=== PATIENT | female | born 1975 | race African-American/Black ===

== ENCOUNTER 2017-01-18 14:32 | Emergency (ER) | payer OTHER, MEDICAID ==
[2017-01-18 18:11] VITALS: BP 127/84
[2017-01-18 18:17] LABS: Urine Bacteria 1+ (Absent); Urine Bilirubin Negative (Negative); Urine Glucose Negative (Negative); Urine Nitrite Negative (Negative)
[2017-01-18 18:37] LABS: Hematocrit 41 % (35-47); Hemoglobin 13.4 g/dl (12.0-16.0); Mean Corpuscular HGB Conc 33 g/dl (31-36); Mean Corpuscular Hemoglobin 28 pg (27-31); Mean Corpuscular Volume 84 fL (80-97); Mean Platelet Volume 11 um3 (7.4-10.4); Red Blood Count 4.85 10^6/ul (4.0-5.4); Red Cell Distribution Width 13 % (10.5-15); White Blood Count 7.2 10^3/ul (3.5-10.8)
[2017-01-18 18:42] LABS: Comments Flag Yes
[2017-01-18 18:44] LABS: Add Diff/Slide Review? Slide Review Added
--- NOTE | 2017-01-18 18:46 | ED ---
GI/ HPI - HPI Summary HPI Summary: 41F presents with abdominal pain lower. She admits to vaginal discharge that was black and foul smelling. She had sex with new person before discharge started. is concerned for STD. had hysterectomy years ago. No fever. She denies any dysuria, flank pain, frequency, urgency. She denies any vomiting or nausea. she denies any diarrhea or constipation. she denies any foreign body in her vagina. never had these symptoms before. she states the discharge is foul smelling and is not itchy. - History of Current Complaint Pain Intensity: 6 <Alejandra Bailey - Last Filed: 01/19/17 02:08> <Vicky Rollins - Last Filed: 01/20/17 16:39> - History of Current Complaint Chief Complaint: EDAbdPain Time Seen by Provider: 01/18/17 16:39 Stated Complaint: ABD PAIN-SENT FROM [facility] - Allergy/Home Medications Allergies/Adverse Reactions: Allergies Allergy/AdvReac Type Severity Reaction Status Date / Time Tramadol Allergy Itching Verified 01/18/17 14:44 PMH/Surg Hx/FS Hx/Imm Hx Endocrine/Hematology History: Denies: Hx Diabetes Cardiovascular History: Reports: Hx Hypertension - on norvasc Denies: Hx Pacemaker/ICD History: Denies: Hx Renal Disease Musculoskeletal History: Reports: Hx Back Problems Sensory History: Reports: Hx Contacts or Glasses Denies: Hx Hearing Aid Opthamlomology History: Reports: Hx Contacts or Glasses Psychiatric History: Denies: Hx Panic Disorder - Surgical History Surgery Procedure, Year, and Place: L5-S1 IN 2014 [place]IAL [place]OMY 2000 [place] 1999 [place]. bladder mesh 2001 [place] Infectious Disease History: No Infectious Disease History: Denies: Traveled Outside the [place] in Last 30 Days - Family History Known Family History: Positive: Cardiac Disease, Hypertension - Social History Alcohol Use: Occasionally Alcohol Amount: 2-3 times a month Substance Use Type: Reports: None Substance Use Comment - Amount & Last Used: Patient did not reply Smoking Status (MU): Never Smoked Tobacco <Alejandra Bailey - Last Filed: 01/19/17 02:08> Review of Systems Negative: Fever Negative: Chest Pain Negative: Shortness Of Breath Positive: Abdominal Pain, Other - vaginal discharge. Negative: Vomiting, Diarrhea, Nausea All Other Systems Reviewed And Are Negative: Yes <Alejandra Bailey - Last Filed: 01/19/17 02:08> Physical Exam Triage Information Reviewed: Yes Vital Signs On Initial Exam: Initial Vitals Temp Pulse Resp BP Pulse Ox 97.6 F 78 16 135/85 98 01/18/17 14:41 01/18/17 14:41 01/18/17 14:41 01/18/17 14:41 01/18/17 14:41 Vital Signs Reviewed: Yes Appearance: Positive: Well-Appearing Skin: Positive: Warm, Dry Head/Face: Positive: Normal Head/Face Inspection Eyes: Positive: Normal, EOMI, IVONE, Conjunctiva Clear ENT: Positive: Normal ENT inspection, Pharynx normal, TMs normal Respiratory/Lung Sounds: Positive: Clear to Auscultation, Breath Sounds Present Cardiovascular: Positive: Normal, RRR Abdomen Description: Positive: Soft, Other: - tenderness pelvic area Bowel Sounds: Positive: Present Pelvic Exam: Positive: external exam normal, speculum exam normal, tender w/ cervical motion. Negative: discharge Neurological: Positive: Normal Psychiatric: Positive: Normal <Alejandra Bailey - Last Filed: 01/19/17 02:08> Vital Signs On Initial Exam: Initial Vitals Temp Pulse Resp BP Pulse Ox 97.6 F 78 16 135/85 98 01/18/17 14:41 01/18/17 14:41 01/18/17 14:41 01/18/17 14:41 01/18/17 14:41 <Vicky Rollins - Last Filed: 01/20/17 16:39> Diagnostics - Vital Signs Vital Signs Temp Pulse Resp BP Pulse Ox 01/18/17 18:00 73 127/84 97 01/18/17 17:30 73 129/88 98 01/18/17 17:27 81 98 01/18/17 17:25 112/56 01/18/17 15:32 78 138/77 98 01/18/17 15:30 82 99 01/18/17 15:23 83 99 01/18/17 14:41 97.6 F 78 16 135/85 98 - Laboratory Lab Results: Lab Results 01/18/17 01/18/17 Range/Units 15:47 15:47 WBC 7.2 (3.5-10.8) 10^3/ul RBC 4.85 (4.0-5.4) 10^6/ul Hgb 13.4 (12.0-16.0) g/dl Hct 41 (35-47) % MCV 84 (80-97) fL MCH 28 (27-31) pg MCHC 33 (31-36) g/dl RDW 13 (10.5-15) % Plt Count 162 (150-450) 10^3/ul MPV 11 H (7.4-10.4) um3 Neut % (Auto) 50.9 (38-83) % Lymph % (Auto) 36.7 (25-47) % [place] % (Auto) 8.9 (1-9) % Eos % (Auto) 2.7 (0-6) % Baso % (Auto) 0.8 (0-2) % Absolute Neuts (auto) 3.7 (1.5-7.7) 10^3/ul Absolute Lymphs (auto) 2.6 (1.0-4.8) 10^3/ul Absolute Monos (auto) 0.6 (0-0.8) 10^3/ul Absolute Eos (auto) 0.2 (0-0.6) 10^3/ul Absolute Basos (auto) 0.1 (0-0.2) 10^3/ul Absolute Nucleated RBC 0.01 10^3/ul Nucleated RBC % 0.2 Urine Color Straw Urine Appearance Clear Urine pH 6.0 (5-9) Ur Specific Protivin 1.004 L (1.010-1.030) Urine Protein Negative (Negative) Urine Ketones Negative (Negative) Urine Blood 1+ H (Negative) Urine Nitrate Negative (Negative) Urine Bilirubin Negative (Negative) Urine Urobilinogen Negative (Negative) Ur Leukocyte Esterase Negative (Negative) Urine WBC (Auto) Trace(0-5/hpf) (Absent) Urine RBC (Auto) Trace(0-2/hpf) (Absent) Ur Squamous Epith Cells Present H (Absent) Urine Bacteria 1+ H (Absent) Urine Glucose Negative (Negative) Result Diagrams: 01/18/17 15:47 01/18/17 15:47 Lab Statement: Any lab studies that have been ordered have been reviewed, and results considered in the medical decision making process. <Alejandra Bailey - Last Filed: 01/19/17 02:08> - Vital Signs Vital Signs Temp Pulse Resp BP Pulse Ox 01/18/17 18:00 73 127/84 97 01/18/17 17:30 73 129/88 98 01/18/17 17:27 81 98 01/18/17 17:25 112/56 01/18/17 15:32 78 138/77 98 01/18/17 15:30 82 99 01/18/17 15:23 83 99 01/18/17 14:41 97.6 F 78 16 135/85 98 - Laboratory Lab Results: Lab Results 01/18/17 01/18/17 01/18/17 Range/Units 15:47 15:47 15:47 WBC 7.2 (3.5-10.8) 10^3/ul RBC 4.85 (4.0-5.4) 10^6/ul Hgb 13.4 (12.0-16.0) g/dl Hct 41 (35-47) % MCV 84 (80-97) fL MCH 28 (27-31) pg MCHC 33 (31-36) g/dl RDW 13 (10.5-15) % Plt Count 162 (150-450) 10^3/ul MPV 11 H (7.4-10.4) um3 Neut % (Auto) 50.9 (38-83) % Lymph % (Auto) 36.7 (25-47) % [place] % (Auto) 8.9 (1-9) % Eos % (Auto) 2.7 (0-6) % Baso % (Auto) 0.8 (0-2) % Absolute Neuts (auto) 3.7 (1.5-7.7) 10^3/ul Absolute Lymphs (auto) 2.6 (1.0-4.8) 10^3/ul Absolute Monos (auto) 0.6 (0-0.8) 10^3/ul Absolute Eos (auto) 0.2 (0-0.6) 10^3/ul Absolute Basos (auto) 0.1 (0-0.2) 10^3/ul Absolute Nucleated RBC 0.01 10^3/ul Nucleated RBC % 0.2 Platelet Morphology Large Normal RBC Morphology Normal (Normal) Sodium (133-145) mmol/L Potassium (3.5-5.0) mmol/L Chloride (101-111) mmol/L Carbon Dioxide (22-32) mmol/L Anion Gap (2-11) mmol/L BUN (6-24) mg/dL Creatinine (0.51-0.95) mg/dL Est GFR ( Amer) (>60) Est GFR (Non-Af Amer) (>60) BUN/Creatinine Ratio (8-20) Glucose (70-100) mg/dL Calcium (8.6-10.3) mg/dL Total Bilirubin (0.2-1.0) mg/dL AST (13-39) U/L ALT (7-52) U/L Alkaline Phosphatase (34-104) U/L C-React Prot High Sens mg/L Total Protein (6.4-8.9) g/dL Albumin (3.2-5.2) g/dL Globulin (2-4) g/dL Albumin/Globulin Ratio (1-3) Lipase (11.0-82.0) U/L Beta HCG, Quant mIU/mL Urine Color Straw Urine Appearance Clear Urine pH 6.0 (5-9) Ur Specific Protivin 1.004 L (1.010-1.030) Urine Protein Negative (Negative) Urine Ketones Negative (Negative) Urine Blood 1+ H (Negative) Urine Nitrate Negative (Negative) Urine Bilirubin Negative (Negative) Urine Urobilinogen Negative (Negative) Ur Leukocyte Esterase Negative (Negative) Urine WBC (Auto) Trace(0-5/hpf) (Absent) Urine RBC (Auto) Trace(0-2/hpf) (Absent) Ur Squamous Epith Cells Present H (Absent) Urine Bacteria 1+ H (Absent) Urine Glucose Negative (Negative) HIV 1&2 Antibody Nonreactive (Nonreactive) 01/18/17 Range/Units 15:47 WBC (3.5-10.8) 10^3/ul RBC (4.0-5.4) 10^6/ul Hgb (12.0-16.0) g/dl Hct (35-47) % MCV (80-97) fL MCH (27-31) pg MCHC (31-36) g/dl RDW (10.5-15) % Plt Count (150-450) 10^3/ul MPV (7.4-10.4) um3 Neut % (Auto) (38-83) % Lymph % (Auto) (25-47) % [place] % (Auto) (1-9) % Eos % (Auto) (0-6) % Baso % (Auto) (0-2) % Absolute Neuts (auto) (1.5-7.7) 10^3/ul Absolute Lymphs (auto) (1.0-4.8) 10^3/ul Absolute Monos (auto) (0-0.8) 10^3/ul Absolute Eos (auto) (0-0.6) 10^3/ul Absolute Basos (auto) (0-0.2) 10^3/ul Absolute Nucleated RBC 10^3/ul Nucleated RBC % Platelet Morphology Normal RBC Morphology (Normal) Sodium 135 (133-145) mmol/L Potassium 3.4 L (3.5-5.0) mmol/L Chloride 105 (101-111) mmol/L Carbon Dioxide 25 (22-32) mmol/L Anion Gap 5 (2-11) mmol/L BUN 13 (6-24) mg/dL Creatinine 0.82 (0.51-0.95) mg/dL Est GFR ( Amer) 97.9 (>60) Est GFR (Non-Af Amer) 76.1 (>60) BUN/Creatinine Ratio 15.9 (8-20) Glucose 88 (70-100) mg/dL Calcium 9.1 (8.6-10.3) mg/dL Total Bilirubin 0.20 (0.2-1.0) mg/dL AST 21 (13-39) U/L ALT 24 (7-52) U/L Alkaline Phosphatase 51 (34-104) U/L C-React Prot High Sens 1.66 mg/L Total Protein 7.4 (6.4-8.9) g/dL Albumin 3.8 (3.2-5.2) g/dL Globulin 3.6 (2-4) g/dL Albumin/Globulin Ratio 1.1 (1-3) Lipase 24 (11.0-82.0) U/L Beta HCG, Quant 0.61 mIU/mL Urine Color Urine Appearance Urine pH (5-9) Ur Specific Protivin (1.010-1.030) Urine Protein (Negative) Urine Ketones (Negative) Urine Blood (Negative) Urine Nitrate (Negative) Urine Bilirubin (Negative) Urine Urobilinogen (Negative) Ur Leukocyte Esterase (Negative) Urine WBC (Auto) (Absent) Urine RBC (Auto) (Absent) Ur Squamous Epith Cells (Absent) Urine Bacteria (Absent) Urine Glucose (Negative) HIV 1&2 Antibody (Nonreactive) Result Diagrams: 01/18/17 15:47 01/18/17 15:47 Lab Statement: Any lab studies that have been ordered have been reviewed, and results considered in the medical decision making process. <Vicky Rollins - Last Filed: 01/20/17 16:39> GIGU Course/Dx - Course Course Of Treatment: 41F presents with abdominal pain lower. She admits to vaginal discharge that was black and foul smelling. She had sex with new person before discharge started. is concerned for STD. had hysterectomy years ago. No fever. She denies any dysuria, flank pain, frequency, urgency. She denies any vomiting or nausea. she denies any diarrhea or constipation. she denies any foreign body in her vagina. never had these symptoms before. on exam no discharge seen. CMT pos. will treat for PID. labs normal. gave dose of rocephin and doxcycline. patient understands and agrees with plan. - Diagnoses Differential Diagnoses - Female: Pelvic Inflammatory Disease, Pyelonephritis, Urinary Tract Infection <Alejandra Bailey - Last Filed: 01/19/17 02:08> <Vicky Rollins - Last Filed: 01/20/17 16:39> - Diagnoses Provider Diagnoses: PID (acute pelvic inflammatory disease) Discharge <Alejandra Bailey - Last Filed: 01/19/17 02:08> <Vicky Rollins - Last Filed: 01/20/17 16:39> - Discharge Plan Condition: Good Disposition: HOME Prescriptions: Ondansetron ODT TAB* [Zofran 4 MG Odt TAB*] 4 mg PO Q6H PRN #12 tab.odt PRN Reason: Nausea Patient Education Materials: Pelvic Inflammatory Disease (ED) Referrals: Destiny Saleem MD [Primary Care Provider] - Additional Instructions: Take doxycycline twice a day for 14 days, wear sunscreen and take with food Take Zofran every 6 hours for nausea Take Tylenol or ibuprofen for fever and pain every 6 hours Follow up with primary care physician Return to ED if develop any new or worsening symptoms Attestation Statement User Type: Provider - I was available for consult. This patient was seen by the MARTHA. The patient was not presented to, seen by, or examined by me. -[place] <Vicky Rollins - Last Filed: 01/20/17 16:39>
[2017-01-18 18:48] LABS: Albumin 3.8 g/dL (3.2-5.2); BUN/Creatinine Ratio 15.9 (8-20); Calcium 9.1 mg/dL (8.6-10.3); EGFR African American 97.9 (>60); EGFR Non-African American 76.1 (>60); Globulin 3.6 g/dL (2-4); Potassium 3.4 mmol/L (3.5-5.0); Total Bilirubin 0.2 mg/dL (0.2-1.0); Total Protein 7.4 g/dL (6.4-8.9)
[2017-01-18 19:04] LABS: Platelet Morphology Large; RBC Morphology Normal (Normal)
[2017-01-18] MEDS ORDERED: DOXYcycline CAP(*) 100 MG PO ONE (19:05)
[2017-01-18] MEDS ORDERED: cefTRIAXone VIAL(*) 250 MG VIAL IM ONE (19:05)
[2017-01-18] MEDS ORDERED: Lidocaine 1%* 5 ML VIAL ONE (19:25)
--- NOTE | 2017-01-20 09:26 | ED ---
Progress - Progress Note Progress Note: Pt's vaginal cx reveals BV - she was not tx'd for this at time of visit. Attempted to call but could not leave a message. Will mail letter to address provided as she needs tx for this condition. gilbert Angela, aware. <Julia Lawson - Last Filed: 01/20/17 09:24> Course/Dx - Course Course Of Treatment: 41F presents with abdominal pain lower. She admits to vaginal discharge that was black and foul smelling. She had sex with new person before discharge started. is concerned for STD. had hysterectomy years ago. No fever. She denies any dysuria, flank pain, frequency, urgency. She denies any vomiting or nausea. she denies any diarrhea or constipation. she denies any foreign body in her vagina. never had these symptoms before. on exam no discharge seen. CMT pos. will treat for PID. labs normal. gave dose of rocephin and doxcycline. patient understands and agrees with plan. <Julia Lawson - Last Filed: 01/20/17 09:24> <Vicky Rollins - Last Filed: 01/20/17 16:34> - Diagnoses Provider Diagnoses: PID (acute pelvic inflammatory disease) Attestation Statement User Type: Provider - I was available for consult. This patient was seen by the MARTHA. The patient was not presented to, seen by, or examined by me. -Clover <Vicky Rollins - Last Filed: 01/20/17 16:34>
== END 2017-01-18 19:40 | disposition home or self-care (01) ==
LOC: ED 14:32
DX: N73.9 Female pelvic inflammatory disease, unspecified (principal); R10.30 Lower abdominal pain, unspecified
CPT/HCPCS: 36415; 80053; 81003; 81015; 83690; 84702; 85025; 86141; 86703; 87086; 87480; 87491; 87510; 87591; 87661; 96372; 99283; A9270-GY; J0696

== ENCOUNTER 2019-03-31 16:31 | Emergency (ER) | payer OTHER, MEDICAID ==
[2019-03-31 16:46] VITALS: BP 141/80
--- NOTE | 2019-03-31 17:19 | UC ---
Headache HPI - HPI Summary HPI Summary: Pleasant 44 yo female c/o last few days of frontal h/a "right behind my eyes" and sinus congestion and "burning" of the nasal mucosa. Reports that she gets headaches like this when her blood pressure goes up, and when she gets sinus infections. no fever / chills. No vis / aud changes. No rash. Not really coughing. No sob / cp / GI. Has nasal spray at home, but hasn't used it recently (hasn't really worked in the past). - History Of Current Complaint Chief Complaint: UCRespiratory Stated Complaint: HEADACHE Hx Obtained From: Patient Pain Intensity: 7 - Allergies/Home Medications Allergies/Adverse Reactions: Allergies Allergy/AdvReac Type Severity Reaction Status Date / Time tramadol AdvReac Itching Verified 03/18/19 13:13 PMH/Surg Hx/FS Hx/Imm Hx Previously Healthy: Yes - see hpi. also back issues. - Surgical History Surgical History: Yes Surgery Procedure, Year, and Place: L5-S1 IN 2014 [place]OMY 2000 [place]AL [place]ATION 1999 [place]. bladder mesh 2001 [place] - Family History Known Family History: Positive: Cardiac Disease, Hypertension - Social History Alcohol Use: Occasionally Alcohol Amount: 1-2 drinks per week Substance Use Type: None Substance Use Comment - Amount & Last Used: Patient did not reply Smoking Status (MU): Never Smoked Tobacco Household Exposure Type: Cigarettes Review of Systems All Other Systems Reviewed And Are Negative: Yes Constitutional: Positive: Negative Skin: Positive: Negative Eyes: Positive: Other - see hpi ENT: Positive: Other - see hpi Respiratory: Positive: Other - see hpi Cardiovascular: Positive: Other - see hpi Gastrointestinal: Positive: Other - see hpi Motor: Positive: Other - see hpi Neurovascular: Positive: Other - see hpi Musculoskeletal: Positive: Other: - see hpi Neurological: Positive: Other - see hpi Psychological: Positive: Other - see hpi Is Patient Immunocompromised?: No Physical Exam Triage Information Reviewed: Yes Appearance: Well-Nourished - sitting up, conversing easily. Looks tired but NAD. Vital Signs: Initial Vital Signs Temp 98 F 03/31/19 16:40 Pulse 72 03/31/19 16:40 Resp 16 03/31/19 16:40 BP 141/80 03/31/19 16:40 Pulse Ox 100 03/31/19 16:40 Vital Signs Reviewed: Yes Eye Exam: Normal ENT: Positive: Nasal congestion, TM dull, Sinus tenderness, Other - uvula a little boggy, but no sores / exudates. Midline. Neck exam: Normal Neck: Positive: Supple, Nontender, No Lymphadenopathy Respiratory Exam: Normal Respiratory: Positive: Chest non-tender, Lungs clear, Normal breath sounds, No respiratory distress, No accessory muscle use Cardiovascular Exam: Normal Cardiovascular: Positive: RRR, Pulses Normal, Brisk Capillary Refill Abdominal Exam: Normal Abdomen Description: Positive: Nontender Musculoskeletal Exam: Normal - gait steady, moves x 4 ext's Neurological Exam: Normal - grossly nonfocal Psychological Exam: Normal - conversing easily Skin Exam: Normal - nondiaphoretic. no visible or reported rash. Headache Course/Dx - Course Course Of Treatment: Reviewed coa / tx plan. Nasonex noted as Nonformulary, as such rx fluticasone e-scribed. Reviewed recommendation for daily use. Note for classes excused written. Rx augmentin, d/w pt. Consider sphenoid sinus involvement (?) Questions as posed answered to the best of my ability. - Differential Dx/Diagnosis Provider Diagnosis: Headache, Sinusitis Discharge ED - Sign-Out/Discharge Documenting (check all that apply): Patient Departure All imaging exams completed and their final reports reviewed: No Studies - Discharge Plan Condition: Stable Disposition: HOME Prescriptions: Amoxicillin/Clavulanate TAB* [Augmentin TAB 875*] 875 mg PO BID #20 tab Fluticasone NASAL SPRAY 50MCG* [Flonase NASAL SPRAY 50MCG*] 2 spray BOTH NARES DAILY #1 btl Patient Education Materials: Sinusitis (ED), Migraine Headache (ED) Forms: *School Release Referrals: Destiny Saleem MD [Primary Care Provider] - Additional Instructions: Blood pressure today 141/80 Please follow up with your primary care physician, per routine. Recommend blood pressure recheck in the next 4 weeks. Avoid "decongestant" (blood pressure). Hydrate. Eat yogurt and / or probiotic daily while taking antibiotic. Please seek medical attention for worse or new problems. - Billing Disposition and Condition Condition: STABLE Disposition: Home
== END 2019-03-31 18:00 | disposition home or self-care (01) ==
LOC: UCEAST 16:31
DX: J32.9 Chronic sinusitis, unspecified (principal); R51 Headache; Z88.5 Allergy status to narcotic agent
CPT/HCPCS: 99212; G0463

== ENCOUNTER 2020-11-23 12:12 | Observation (INO) ==
[2020-11-23] MEDS ORDERED: Al Hydrox/Mg Hydrox/Simet LIQ 30 ML UDC PO ONE (12:25)
[2020-11-23] MEDS ORDERED: NS 0.9% 1000 ml BAG 1,000 ML IV ONE (12:25)
[2020-11-23 13:21] LABS: Hematocrit 44 % (35-47); Hemoglobin 14.3 g/dL (12.0-16.0); Mean Corpuscular HGB Conc 33 g/dL (31-36); Mean Corpuscular Hemoglobin 28 pg (27-31); Mean Corpuscular Volume 84 fL (80-97); Mean Platelet Volume 11.5 fL (7.4-10.4); Platelet Count 149 10^3/uL (150-450); Red Cell Distribution Width 13 % (10-15); White Blood Count 9.7 10^3/uL (3.5-10.8)
[2020-11-23 13:27] LABS: ABS Basophils 0.1 10^3/ul (0-0.2); ABS Eosinophils 0.1 10^3/ul (0-0.6); ABS Lymphocytes 0.9 10^3/ul (1.0-4.8); ABS Monocytes 0.7 10^3/ul (0-0.8); ABS Neutrophils 7.9 10^3/ul (1.5-7.7); Lymphocyte % 9.5 %
[2020-11-23 13:41] LABS: ALT 131 U/L (7-52); AST 264 U/L (13-39); Albumin 3.7 g/dL (3.2-5.2); Albumin/Globulin Ratio 1.1 (1-3); Alkaline Phosphatase 103 U/L (35-149); Anion Gap 5 mmol/L (2-11); Blood Urea Nitrogen 13 mg/dL (6-24); C Reactive Protein 2.63 mg/L (<8.01); CO2 Carbon Dioxide 27 mmol/L (22-32); Calcium 8.3 mg/dL (8.6-10.3); Chloride 103 mmol/L (101-111); EGFR African American 87.9 (>60); EGFR Non-African American 72.7 (>60); Globulin 3.5 g/dL (2-4); Glucose 120 mg/dL (70-100); Lipase 23 U/L (11.0-82.0); Potassium 3.9 mmol/L (3.5-5.0); Sodium 135 mmol/L (135-145); Total Protein 7.2 g/dL (6.4-8.9)
[2020-11-23 13:47] LABS: HCG Pregnancy < 0.60 mIU/mL
[2020-11-23] MEDS ORDERED: Ondansetron 4 mg VIAL 2 MG/ML 2 ml VIAL IV ONE (14:18)
[2020-11-23] MEDS ORDERED: Lactated Ringers 1000 ml BAG 1,000 ML IV ONE (14:18)
[2020-11-23] MEDS ORDERED: Morphine 4 MG/ML VIAL (1 ml) IV ONE (14:18)
[2020-11-23] MEDS: HYDROcodone/ACET. 7.5/325 LIQ 15 ML UDC PO PRN (20:07)
[2020-11-23] MEDS: NS 0.9% 1000 ml BAG 1,000 ML IV SCH (20:44)
[2020-11-23] MEDS: CMC:Meloxicam 7.5 mg TAB (NF) PO SCH (22:21)
[2020-11-23] MEDS: Heparin 5000 UNITS/ML 1 mL VIAL SUBCUT SCH (22:22)
[2020-11-24] MEDS: Heparin 5000 UNITS/ML 1 mL VIAL SUBCUT SCH ×4 (05:09→22:15)
[2020-11-24 06:44] LABS: Hematocrit 41 % (35-47); Hemoglobin 13.4 g/dL (12.0-16.0); Mean Corpuscular HGB Conc 33 g/dL (31-36); Mean Corpuscular Hemoglobin 28 pg (27-31); Mean Corpuscular Volume 84 fL (80-97); Mean Platelet Volume 11.8 fL (7.4-10.4); Platelet Count 151 10^3/uL (150-450); Red Blood Count 4.83 10^6 /uL (3.70-4.87); Red Cell Distribution Width 13 % (10-15); White Blood Count 7.7 10^3/uL (3.5-10.8)
[2020-11-24 06:48] LABS: ABS Eosinophils 0.3 10^3/ul (0-0.6); ABS Lymphocytes 2.4 10^3/ul (1.0-4.8); ABS Monocytes 0.6 10^3/ul (0-0.8); ABS Neutrophils 4.4 10^3/ul (1.5-7.7); Eosinophil % 3.6 %; Lymphocyte % 30.9 %; Nucleated Red Blood Cells % 0.1
[2020-11-24 07:04] LABS: Albumin 3.7 g/dL (3.2-5.2); Albumin/Globulin Ratio 1.2 (1-3); Calcium 8.6 mg/dL (8.6-10.3); EGFR African American 98.7 (>60); EGFR Non-African American 81.6 (>60); Globulin 3.2 g/dL (2-4); Potassium 3.7 mmol/L (3.5-5.0); Total Bilirubin 0.4 mg/dL (0.2-1.0); Total Protein 6.9 g/dL (6.4-8.9)
[2020-11-24] MEDS ORDERED: Morphine ER 30 mg TAB ** extended release PO SCH (09:00)
[2020-11-24] MEDS: CMC:Meloxicam 7.5 mg TAB (NF) PO SCH ×2 (09:09→20:33)
[2020-11-24] MEDS: Piperacillin/Tazobac ADVAN 3.375 GM in NS 0.9% 100 ml BAG 100 ML IV SCH (17:55)
[2020-11-24] MEDS: HYDROcodone/ACET. 7.5/325 LIQ 15 ML UDC PO PRN (20:33)
[2020-11-24] MEDS: NS 0.9% 1000 ml BAG 1,000 ML IV SCH (22:52)
[2020-11-25] MEDS: Piperacillin/Tazobac ADVAN 3.375 GM in NS 0.9% 100 ml BAG 100 ML IV SCH ×2 (02:32→09:33)
[2020-11-25] MEDS: Heparin 5000 UNITS/ML 1 mL VIAL SUBCUT SCH (04:05)
[2020-11-25] MEDS ORDERED: Buffered Lidocaine 1% SYRIN 1 ml INTRADERM ONE ×2 (08:51→10:45)
[2020-11-25] MEDS ORDERED: Bupivacaine 0.25% SDV 30 ML ONE (09:25)
[2020-11-25] MEDS ORDERED: Iohexol 180 (CONTRAST) 10 ML SDV IV ONE (09:25)
[2020-11-25] MEDS ORDERED: Midazolam 2 mg/2 ml VIAL 1 mg/ml 2 ml VIAL (2 mg) ONE (09:48)
[2020-11-25] MEDS ORDERED: Dexamethasone IV 4 MG/ML VIAL 1 ml VIAL ONE (09:49)
[2020-11-25] MEDS ORDERED: Ondansetron 4 mg VIAL 2 MG/ML 2 ml VIAL ONE (09:49)
[2020-11-25] MEDS ORDERED: Lidocaine 2% PF 5 ML VIAL ONE ×2 (09:49→10:29)
[2020-11-25] MEDS ORDERED: Propofol 10 MG/ML 20 ML BTL ONE ×2 (09:49→10:06)
[2020-11-25] MEDS ORDERED: fentaNYL 100 mcg/2 ml 50 MCG/ML VIAL ONE ×2 (09:49→10:27)
[2020-11-25] MEDS ORDERED: Rocuronium 50 mg VIAL 10 mg/ml 5 ml VIAL (50 mg) ONE (09:50)
[2020-11-25] MEDS ORDERED: HYDROmorphone 1 MG/1 ML SYRINGE ONE ×2 (10:17→10:38)
[2020-11-25] MEDS ORDERED: Labetalol IV 5 MG/ML 20 ml VIAL ONE (10:36)
[2020-11-25] MEDS ORDERED: Ondansetron 4 mg VIAL 2 MG/ML 2 ml VIAL IV PRN (10:46)
[2020-11-25] MEDS ORDERED: HYDROmorphone 1 MG/1 ML SYRINGE IV PRN (10:46)
[2020-11-25] MEDS ORDERED: Naloxone 0.4 mg VIAL 0.4 mg/ml 1 ml VIAL IV PRN (10:46)
[2020-11-25] MEDS ORDERED: fentaNYL 100 mcg/2 ml 50 MCG/ML VIAL IV PRN (10:46)
[2020-11-25] MEDS ORDERED: DiMENhydriNATE IV 50 mg/ml 1 ml VIAL IV PUSH PRN (10:46)
[2020-11-25] MEDS ORDERED: Acetaminophen IV 1 GM/100ML 100 ML IV ONE (10:50)
[2020-11-25] MEDS ORDERED: Lactated Ringers 1000 ml BAG 1,000 ML IV SCH (11:00)
[2020-11-25] MEDS ORDERED: Benzocaine/Menthol LOZ PO PRN (12:28)
[2020-11-25] MEDS ORDERED: Phenol 1.4% Throat Spray 177 ml BTL MT PRN (12:30)
[2020-11-25 13:08] VITALS: BP 134/85
== END 2020-11-25 13:35 | disposition home or self-care (01) ==
LOC: ED 12:12 → MEDTELE 12:12 → SUATTDRO 15:37 → MEDTELE 18:32
PROVIDERS: ADMIT Hospitalist; ATTEND Surgery

== ENCOUNTER 2020-12-18 09:34 | Observation (INO) ==
[2020-12-18 11:49] LABS: Hematocrit 44 % (35-47); Hemoglobin 14.7 g/dL (12.0-16.0); Mean Corpuscular HGB Conc 34 g/dL (31-36); Mean Corpuscular Hemoglobin 28 pg (27-31); Mean Corpuscular Volume 83 fL (80-97); Mean Platelet Volume 11.2 fL (7.4-10.4); Platelet Count 169 10^3/uL (150-450); Red Blood Count 5.26 10^6 /uL (3.70-4.87); Red Cell Distribution Width 13 % (10-15); White Blood Count 9.2 10^3/uL (3.5-10.8)
[2020-12-18] MEDS ORDERED: Morphine 4 MG/ML VIAL (1 ml) IV ONE ×2 (11:53→14:07)
[2020-12-18] MEDS ORDERED: Ondansetron 4 mg VIAL 2 MG/ML 2 ml VIAL IV ONE (11:53)
[2020-12-18 12:04] LABS: ALT 23 U/L (7-52); AST 18 U/L (13-39); Albumin 4.2 g/dL (3.2-5.2); Albumin/Globulin Ratio 1.1 (1-3); Alkaline Phosphatase 62 U/L (35-149); Anion Gap 9 mmol/L (2-11); Blood Urea Nitrogen 15 mg/dL (6-24); CO2 Carbon Dioxide 22 mmol/L (22-32); Calcium 9.4 mg/dL (8.6-10.3); Chloride 101 mmol/L (101-111); EGFR African American 78.2 (>60); EGFR Non-African American 64.6 (>60); Globulin 3.8 g/dL (2-4); Glucose 141 mg/dL (70-100); Potassium 3.9 mmol/L (3.5-5.0); Sodium 132 mmol/L (135-145)
[2020-12-18 12:06] LABS: ABS Basophils 0.1 10^3/ul (0-0.2); ABS Monocytes 0.6 10^3/ul (0-0.8); ABS Neutrophils 7.5 10^3/ul (1.5-7.7); Eosinophil % 0.4 %; Lymphocyte % 10.9 %
[2020-12-18 12:12] LABS: HCG Pregnancy < 0.60 mIU/mL
[2020-12-18] MEDS ORDERED: Lactated Ringers 1000 ml BAG 1,000 ML IV ONE (14:07)
[2020-12-18] MEDS ORDERED: ceFOXitin 2 GM IVPREMIX 2 GM/50 ML BAG ONE ×2 (15:34→18:08)
[2020-12-18] MEDS ORDERED: Propofol 10 MG/ML 20 ML BTL ONE (15:49)
[2020-12-18] MEDS ORDERED: Midazolam 2 mg/2 ml VIAL 1 mg/ml 2 ml VIAL (2 mg) ONE (15:50)
[2020-12-18] MEDS ORDERED: Rocuronium 50 mg VIAL 10 mg/ml 5 ml VIAL (50 mg) ONE ×2 (15:50→17:14)
[2020-12-18] MEDS ORDERED: fentaNYL 100 mcg/2 ml 50 MCG/ML VIAL ONE ×5 (15:50→19:21)
[2020-12-18] MEDS ORDERED: Bupivacaine 0.25% SDV 30 ML ONE ×2 (16:12)
[2020-12-18] MEDS ORDERED: Dexamethasone IV 4 MG/ML VIAL 1 ml VIAL ONE (16:28)
[2020-12-18] MEDS ORDERED: Ondansetron 4 mg VIAL 2 MG/ML 2 ml VIAL ONE (16:28)
[2020-12-18] MEDS ORDERED: Morphine 4 MG/ML VIAL (1 ml) IV PRN (18:48)
[2020-12-18] MEDS: fentaNYL 100 mcg/2 ml 50 MCG/ML VIAL IV PRN ×3 (18:49→19:22)
[2020-12-18] MEDS ORDERED: Ondansetron 4 mg VIAL 2 MG/ML 2 ml VIAL IV PRN (19:07)
[2020-12-18] MEDS ORDERED: HYDROcodone/ACETAMIN 5/325 mg TAB ONE (19:45)
[2020-12-18] MEDS: HYDROcodone/ACETAMIN 5/325 mg TAB PO PRN (19:46)
[2020-12-18] MEDS: Lactated Ringers 1000 ml BAG 1,000 ML IV SCH (22:30)
[2020-12-19] MEDS: HYDROcodone/ACETAMIN 5/325 mg TAB PO PRN (02:53)
[2020-12-19] MEDS: Lactated Ringers 1000 ml BAG 1,000 ML IV SCH (02:53)
[2020-12-19 05:19] LABS: ABS Basophils 0.1 10^3/ul (0-0.2); ABS Lymphocytes 1.4 10^3/ul (1.0-4.8); ABS Neutrophils 12.6 10^3/ul (1.5-7.7); Hematocrit 40 % (35-47); Hemoglobin 13.2 g/dL (12.0-16.0); Lymphocyte % 9.3 %; Mean Corpuscular HGB Conc 33 g/dL (31-36); Mean Corpuscular Hemoglobin 28 pg (27-31); Mean Corpuscular Volume 83 fL (80-97); Mean Platelet Volume 11.6 fL (7.4-10.4); Platelet Count 159 10^3/uL (150-450); Red Blood Count 4.78 10^6 /uL (3.70-4.87); Red Cell Distribution Width 13 % (10-15); White Blood Count 15.1 10^3/uL (3.5-10.8)
[2020-12-19 05:32] LABS: Albumin 3.9 g/dL (3.2-5.2); Albumin/Globulin Ratio 1.2 (1-3); EGFR African American 89.2 (>60); EGFR Non-African American 73.7 (>60); Globulin 3.3 g/dL (2-4); Potassium 3.9 mmol/L (3.5-5.0); Total Bilirubin 0.4 mg/dL (0.2-1.0); Total Protein 7.2 g/dL (6.4-8.9)
[2020-12-19 09:19] VITALS: BP 138/70
== END 2020-12-19 13:30 | disposition home or self-care (01) ==
LOC: ED 09:34 → MEDTELE 16:55 → OR 16:55
PROVIDERS: ADMIT Obstetrics & Gynecology; ATTEND Obstetrics & Gynecology